=== PATIENT | female | born 1995 | race Caucasian/White ===

== ENCOUNTER 2019-06-28 14:52 | Outpatient (CLI) | payer OTHER ==
--- NOTE | 2019-07-03 16:55 | Ultrasound Report ---
Reason: HYPOTHYROIDISM Procedure Date: 06/28/2019 Accession Number: [id number] / [id number] Procedure: US - Head or Neck Soft Tissue CPT Code: Final Report FULL RESULT: EXAM: THYROID ULTRASOUND EXAM DATE: 06/28/2019 03:57 PM. CLINICAL HISTORY: Hypothyroidism. COMPARISON: None. TECHNIQUE: Real time sonographic imaging of the thyroid was performed by the vice president network development. Multiple wireless sales representative static images were saved for review. FINDINGS: THYROID GLAND: Right Lobe: 4.6 x 1.3 x 1.3 cm, volume 4.0 cc. Normal background echotexture. Right Lobe Nodules: None. Left Lobe: 4.2 x 1.0 x 1.7 cm, volume 3.7 cc. Normal background echotexture. Left Lobe Nodules: Solid, mildly vascular hypoechoic oval nodule in the midpole measuring 0.8 x 0.5 x 0.5 cm. The margins are smooth and the morphology is wider than tall. No associated calcifications. Isthmus: 0.17 cm AP. Isthmic Nodules: None. LYMPH NODES: No adenopathy demonstrated in the central or lateral compartment. IMPRESSION: Solitary left midpole nodule measuring 8 mm in maximal dimension. Recommend follow-up ultrasound in 12 months to confirm stability. Management recommendations are based on 2015 [place] [employer] Management Guidelines for Adult Patients with Thyroid Nodules and Differentiated Thyroid Cancer. [facility]
== END 2019-06-28 14:53 | disposition home or self-care (01) ==
LOC: DI 14:52
PROVIDERS: ATTEND Internal Medicine
DX: E04.1 Nontoxic single thyroid nodule (principal); E03.9 Hypothyroidism, unspecified; L70.9 Acne, unspecified; F41.8 Other specified anxiety disorders
CPT/HCPCS: 36415; 76536; 84443

== ENCOUNTER 2021-03-06 13:41 | Emergency (ER) | payer BC, OTHER ==
--- NOTE | 2021-03-06 14:46 | ED Physician Documentation ---
History of Present Illness - Stated complaint Stated Complaint: INCISION CHECK - Chief complaint Chief Complaint: General - History obtained from History obtained from: Patient - Additonal information Additional information: Patient comes emergency department chief complaint of redness around incision sites after Renee-en-Y procedure last week. Patient states she had a reaction to the adhesive on both the tape and the Steri-Strips, and that this caused the initial redness and irritation. She denies any wound dehiscence or drainage, but states that she is just continued to have redness around the wounds, and that the redness around her biggest wound has spread just a little bit over the last 5 days. Patient states the surgical nurses initially told her that it was probably just an adhesive reaction, but given patient's ongoing concerns, they told her to come here to get checked out. Patient denies feeling ill. No fevers or chills. She has otherwise been doing well since her surgery. Review of Systems Ten Systems: 10 systems reviewed and negative Constitutional: reports: Reviewed and negative Eyes: reports: Reviewed and negative Ears: reports: Reviewed and negative Nose: reports: Reviewed and negative Throat: reports: Reviewed and negative Cardiac: reports: Reviewed and negative Respiratory: reports: Reviewed and negative GI: reports: Reviewed and negative : reports: Reviewed and negative Skin: reports: Other (Redness) Musculoskeletal: reports: Reviewed and negative Neurologic: reports: Reviewed and negative Psychiatric: reports: Reviewed and negative Endocrine: reports: Reviewed and negative Immunocompromised: reports: Reviewed and negative PD PAST MEDICAL HISTORY - Past Medical History Past Medical History: Yes Endocrine/Autoimmune: HyPOthyroidism - Past Surgical History Past Surgical History: Yes General: Gastric surgery - Present Medications Home Medications: Ambulatory Orders Medication Instructions Recorded Confirmed Doxycycline Monohydrate [Avidoxy] 100 mg PO BID #14 tablet 03/06/21 Levothyroxine [Synthroid] 125 mcg PO DAILY 03/06/21 03/06/21 Metoclopramide [Reglan] 10 mg PO Q6HR PRN 03/06/21 03/06/21 predniSONE [Deltasone] 60 mg PO DAILY 5 Days #15 tablet 03/06/21 - Allergies Allergies/Adverse Reactions: Allergies Allergy/AdvReac Type Severity Reaction Status Date / Time oxycodone Allergy Rash Verified 03/06/21 13:45 Penicillins Allergy Rash Verified 03/06/21 13:45 - Social History Does the pt smoke?: No Smoking Status: Never smoker Does the pt drink ETOH?: Yes Does the pt have substance abuse?: No PD ED PE NORMAL - Vitals Vital signs reviewed: Yes - General General: Alert and oriented X 3, No acute distress, Well developed/nourished - HEENT HEENT: Atraumatic, PERRL, EOMI, Moist mucous membranes - Neck Neck: Supple, no meningeal sign - Respiratory Respiratory: No respiratory distress - Abdomen Abdomen: Soft, Non tender, Non distended, Other (See free text exam) - Derm Derm: Warm and dry - Extremities Extremities: No deformity - Neuro Neuro: Alert and oriented X 3 - Psych Psych: Normal mood, Normal affect PD ED PE EXPANDED - Free text exam Free text exam: Patient has 4 incision sites, each with a 1 to 2 cm radius of mild erythema circumferentially surrounding. All surgical wounds are clean dry and intact. No induration associated with any of the wound. Regarding the largest wound, there is a 7 cm diameter patch of erythema with some areas of clearing within which are intermittently placed tiny papules. Erythematous patches are uniformly raised and well demarcated with the appearance of urticaria. No induration, intense erythema, or fluctuance. Results - Vitals Vitals: Vital Signs - 24 hr 03/06/21 03/06/21 03/06/21 13:45 14:26 14:54 Temperature 36.8 C 36.7 C 36.6 C Heart Rate 90 95 90 Respiratory 16 14 16 Rate Blood Pressure 126/69 119/75 126/86 H O2 Saturation 99 97 99 Oxygen O2 Source Room air PD MEDICAL DECISION MAKING - ED course Complexity details: considered differential, d/w patient ED course: I discussed with the patient that my impression at this point is that she has more of a reaction going on and that the appearance and feel of her areas of erythema, as well as the clean dry condition of her wounds, do not indicate an infection. I have given the patient a prescription for antibiotics that she should fill only if she has uniform and More rapidly progressive spread of erythema, especially with wound dehiscence, drainage, and fevers. Otherwise, patient should keep an eye on the erythema and if it does not progress, it is almost certainly not a wound infection. Furthermore, the fact that every single wound is involved makes the likelihood of wound infection much less. Departure - Departure Disposition: 01 Home, Self Care Clinical Impression: Allergic reaction to adhesive Condition: Stable Instructions: ED Allergic Reaction Local Other Prescriptions: Doxycycline Monohydrate [Avidoxy] 100 mg PO BID #14 tablet predniSONE [Deltasone] 60 mg PO DAILY 5 Days #15 tablet Comments: The redness around all of your incision sites appears most consistent with a reaction to something that has touched the skin. Given your recent exposure to adhesives and the fact that it is very common to have skin reactions to adhesives, this is the most likely cause. You do not appear to have cellulitis/skin infection at this time. Your flush and skin are soft, and the redness around the incisions has the appearance of hives and a more "speckling" rash, which is not the usual appearance of a skin infection. Additionally, the spread is extremely slow if present at all and there is no opening of your wounds or drainage. We will give you an antibiotic prescription that you may hold onto, and if you begin to have fevers or chills, or notice a uniform spreading of the redness that becomes much more rapid, then you should fill the prescription and begin the antibiotics. Otherwise, you may take the steroids as needed and continue the Benadryl as needed. Most of these reactions will blow over on their own and anywhere from several days to a couple of weeks. Discharge Date/Time: 03/06/21 14:55
[2021-03-06 14:56] VITALS: BP 126/86
== END 2021-03-06 14:55 | disposition home or self-care (01) ==
LOC: ED 13:41
DX: L23.1 Allergic contact dermatitis due to adhesives (principal)
CPT/HCPCS: 99282; 99284